=== PATIENT | female | born 1980 | race Caucasian/White ===

== ENCOUNTER 2023-08-31 08:24 | Emergency (ER) | payer OTHER ==
[~2023-08-31] VITALS: Ht 154.9 cm; Wt 136.1 kg
[~2023-08-31 08:24] MED LIST: CEFDINIR300 MG PO; ONDANSETRON ODT4 MG SL
[2023-08-31 09:08] LABS: BASOPHILS % 0.5 % (0.0-1.0); EOSINOPHILS # (AUTO) 0.2 (0.0-0.4); EOSINOPHILS % 1.9 % (0.0-6.0); HEMATOCRIT 41.5 % (34.2-44.1); LYMPHOCYTES # (AUTO) 1.8 (1.0-3.2); LYMPHOCYTES % 21.6 % (18.0-39.1); MEAN CORPUSCULAR HEMOGLOBIN 26.8 pg (28-32); MEAN CORPUSCULAR HGB CONC 33.7 g/dL (31-35); MEAN CORPUSCULAR VOLUME 79.5 fL (81-99); MONOCYTES # (AUTO) 0.3 (0.2-0.8); MONOCYTES % 4.1 % (4.4-11.3); NEUTROPHILS # (AUTO) 5.9 (2.1-6.9); NEUTROPHILS % 71.7 % (38.7-80.0); PLATELET COUNT 190 x10e3/uL (140-360); RED BLOOD COUNT 5.22 x10e6/uL (3.6-5.1); RED CELL DISTRIBUTION WIDTH 13.2 % (11.7-14.4); WHITE BLOOD COUNT 8.29 x10e3/uL (4.8-10.8)
[2023-08-31 09:36] LABS: ANION GAP 13.7 mmol/L (8-16); CREATININE, SERUM 1.9 mg/dL (0.57-1.11); POTASSIUM 4.7 mmol/L (3.5-5.1)
[2023-08-31] MEDS: HYDROCODONE/APAP 5MG-325MG TAB PO ONE (09:42)
[2023-08-31] MEDS: LOSARTAN POTASSIUM 25 MG TAB PO SCH (10:07)
[2023-08-31] MEDS: SODIUM CHLORIDE 0.9% 1000ML 1,000 ML IV STA ×2 (10:26→13:59)
[2023-08-31] MEDS ORDERED: IOPAMIDOL 370 MG/ML 100 ML INFUS..BTL INJ ONE (11:00)
[2023-08-31] MEDS ORDERED: SODIUM CHLORIDE 0.9% 1000ML 1,000 ML ONE (12:22)
[2023-08-31 16:01] LABS: TROPONIN I 0.01 ng/mL (0-0.300)
[2023-08-31] MEDS: HYDRALAZINE HCL 20 MG/ML VIAL IV STA (16:29)
[2023-08-31] MEDS ORDERED: AMLODIPINE BESYL5 MG PO (17:50)
[2023-08-31] MEDS ORDERED: LASIX20 MG PO (17:51)
[2023-08-31 18:59] VITALS: BP 176/113; PULSE 93; RESP 18; O2SAT 100
== END 2023-08-31 18:00 | disposition home or self-care (01) ==
LOC: ER 08:30
DX: R60.9 Edema, unspecified (principal); E11.65 Type 2 diabetes mellitus with hyperglycemia; I10 Essential (primary) hypertension; E78.5 Hyperlipidemia, unspecified
CPT/HCPCS: 36415; 71260; 80048; 82550; 82948; 84484; 84702; 85025; 85379; 93970; 99284; J0360; J7030; Q9967

== ENCOUNTER 2024-04-17 18:32 | Emergency (ER) | payer OTHER ==
[~2024-04-17] VITALS: Ht 154.9 cm; Wt 181.4 kg
[~2024-04-17 18:32] MED LIST changes: +AMLODIPINE BESYL5 MG PO; +LASIX20 MG PO
[2024-04-17 18:46] VITALS: PULSE 89; RESP 18; TEMP 98.6; O2SAT 100
== END 2024-04-17 19:30 | disposition home or self-care (01) ==
LOC: ER 19:00
DX: R60.9 Edema, unspecified (principal); I10 Essential (primary) hypertension; E11.9 Type 2 diabetes mellitus without complications; E78.5 Hyperlipidemia, unspecified; E66.01 Morbid (severe) obesity due to excess calories
CPT/HCPCS: 99282